=== PATIENT | male | born 2005 | race Caucasian/White ===

== ENCOUNTER 2024-06-09 18:02 | Emergency (ER) | payer OTHER ==
[~2024-06-09] VITALS: Ht 175.3 cm; Wt 68.0 kg
[2024-06-09 18:05] VITALS: O2SAT 99
[2024-06-09 18:06] VITALS: BP 123/85; PULSE 92; TEMP 98.5; O2SAT 100
== END 2024-06-09 19:09 | disposition home or self-care (01) ==
LOC: ER 18:02
DX: M54.50 Low back pain, unspecified (principal); F19.90 Other psychoactive substance use, unspecified, uncomplicated
CPT/HCPCS: 99281